=== PATIENT | male | born 1965 | race Caucasian/White ===

== ENCOUNTER 2016-09-13 06:57 | Day surgery (SDC) | payer BC, OTHER ==
--- NOTE | 2016-09-12 14:45 | HP ---
DATE OF CLINIC: 09/07/2016 ORION VILLALPANDO : 1965 PLANNED PROCEDURE: Left Knee Arthroscopic Partial Medial and Lateral Meniscectomies DATE OF SURGERY: September 13, 2016 SURGEON: Ulises Chicas M.D. HISTORY OF PRESENT ILLNESS Orion Villalpando is a 51 year old male. * Medication list reviewed with patient allergy list reviewed with patient. Patient is a being seen today regarding his left anterior knee pain for the past 2 months following a hike at [employer]. He denies any specific injury. He was hiking on inclines and declines and reports that inclines do produce knee pain. He also has pain following sedentary activities with symptom resolution after a few minutes of knee ROM. He denies any instability or weakness. He has tried ibuprofen, 200mg, 3 times a day without significant help. He has also tried icing of the knee and a knee sleeve and an CRISTINA wrap. He denies any knee injections. His symptoms are most pronounced in the anteromedial knee as well as radiating through behind the kneecap into the lateral mid femoral tibial joint-line. He has no complaints with kneeling. 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 After discussion and review of treatment options, both operative and non-operative, he has elected to proceed with surgery and presents today preoperatively. CURRENT MEDICATION * Ibuprofen 200 MG Tablet as needed 0 days, 0 refills PAST MEDICAL/SURGICAL HISTORY Reported: Medical: Renal history Stones. Surgical / Procedural: Hernia repair Double - 2006. SOCIAL HISTORY Behavioral: No tobacco use. Never smoked. Smoking status: Never smoker. Alcohol: Alcohol use. ALLERGIES * No Known Allergies No reaction to anesthetics. REVIEW OF SYSTEMS No recent constitutional symptoms to include fevers and chills. No cardiovascular symptoms to include chest pain or palpitations. No respiratory symptoms to include shortness of breath or recent infections. PHYSICAL FINDINGS * Vitals taken 09/07/2016 03:17 pm BP-Sitting R 118/84 mmHg Pulse Rate-Sitting 73 bpm Temp-Oral 97.6 F Height 67.5 in Weight 158 lbs Body Mass Index 24.4 kg/m2 Body Surface Area 1.84 m2 Pain Level 4 Ears, Nose, Throat: * ENT: normal. Lungs: * Clear to auscultation. Cardiovascular: Heart Rate and Rhythm: * Normal. Abdomen: * Normal. Neurological: Motor: * Dominant Hand = Right Hand. Patient is alert and oriented and in no acute distress. He ambulates in on his own without a knee brace or walking aid. Left knee exam: No bruising, swelling or deformity. No erythema, increased warmth or sign of infection. Patient has some mild patellar popping with a negative patellar grind test. He has a little bit of patellar mobility, but no pronounced subluxation or dislocation symptoms. His knee ROM is fully straight and is able to flex to 130 degrees. Valgus and varus stress tests shows good stability with good endpoint. Varus stressing produces some discomfort along the medial joint. Stephanie test is slightly positive producing some mild anteromedial jointline symptoms. Trevor test is negative, anterior drawer and posterior drawer tests are negative. Quadriceps and hamstring strength is 5/5. Ankle dorsiflexion and plantarflexion strength is 5/5. Hip strength is 5/5. IMAGING Xrays from today, 08/28/16, as well as 07/13/16 were reviewed and shows bilateral medial compartment joint space narrowing consistent with mild knee arthritis. His lateral view of his left knee shows mild superior patella bone spur consistent with early patellofemoral osteoarthritis. No sign of fracture or dislocation. His MRI from 08/08/16 was also reviewed and he has signal changes in the mid-lateral meniscus as well as the posteromedial meniscus consistent with medial and lateral meniscus tears. His ACL and PCL appear to be intact as well as his collaterals. No substantial bone bruising. Please refer to radiologic report for further details. ASSESSMENT Left knee pain. Internal derangement, left knee, consistent with probable medial posterior horn meniscus tear and possible lateral subtle meniscus tear. Possible anterior knee pain coming from patellofemoral symptoms. THERAPY * Patient not eligible for fall risk assessment. PLAN * Oth meniscus derangements, other medial meniscus, left knee Percocet 5-325 MG TABS, Take 1-2 tablets by mouth every 4 hours as needed for pain, 14 days, 0 refills * Knee Arthroscopy (Left) with PMM and PLM CARE TEAM Dimitry Carvajal MD [facility] SURGICAL CONSENT We have discussed surgical options including left knee arthroscopic PMM and PLM and non-operative management. The patient was counseled in detail regarding the diagnosis, treatment options available, prognosis of each treatment option and the potential risks and complications. The risks of surgery include, but are not limited to, anesthetic , neurovascular complications, pulmonary embolism, deep vein thrombosis, wound dehiscence, failure of any or all of the discussed procedures, infection of the joint or surrounding soft tissue, need for revision surgery, chronic pain, limitations in activities of daily living, inability to return to work, and loss of normal range of motion or functional use of the extremity. There is the possibility of failure over time that may require additional operative or non-operative treatment. The patient acknowledged that there are a number of perioperative risks not mentioned here and would still like to proceed. The patient is aware of and understands these risks, and wishes to proceed with the proposed surgical procedure and other procedures as indicated at the time of surgery. We will have the patient see their PCP for a preoperative medical risk assessment. The preoperative instructions were reviewed with the patient and all questions were answered. PB/sg
[~2016-09-13 06:57] MED LIST: CEFAZOLIN SODIUM 2 GRAM DUPLEX 50 ML IV PRN; IV START KIT ONE; LACTATED RINGERS 1,000 ML ONE
[2016-09-13] MEDS ORDERED: CEFAZOLIN SODIUM 2 GRAM PREMIX 100 ML IV ONE (07:05)
[2016-09-13] MEDS ORDERED: PROPOFOL 20 ML IV ONE (08:11)
[2016-09-13] MEDS ORDERED: ONDANSETRON 4 MG/2ML 2 ML VIAL ONE (08:11)
[2016-09-13] MEDS ORDERED: BUPIVACAINE 0.5% W/EPI SDV 30 ML VIAL ONE (08:12)
[2016-09-13] MEDS ORDERED: FENTANYL 100 MCG/2 ML VIAL ONE (08:12)
[2016-09-13] MEDS ORDERED: MIDAZOLAM HCL 1 MG/ML 2ML VIAL ONE (08:12)
[2016-09-13] MEDS ORDERED: KETAMINE HCL 50 MG/ML 1 ML DOSE ONE (08:36)
[2016-09-13] MEDS ORDERED: ONDANSETRON 4 MG/2ML 2 ML VIAL IV PRN ×2 (08:55→09:32)
[2016-09-13] MEDS ORDERED: MORPHINE SULFATE 4 MG/ML SYRINGE IV PRN (08:55)
[2016-09-13] MEDS ORDERED: FENTANYL 100 MCG/2 ML VIAL IV PRN (08:55)
[2016-09-13] MEDS ORDERED: PROMETHAZINE HCL 25 MG/ML VIAL IM PRN (08:55)
[2016-09-13] MEDS ORDERED: LACTATED RINGERS 1,000 ML IV SCH ×2 (09:00→09:32)
[2016-09-13] MEDS ORDERED: KETOROLAC TROMETHAMINE 30 MG/ML 1 ML VIAL ONE (09:03)
--- NOTE | 2016-09-13 09:18 | PCMBPN ---
Brief Post Op Note: Date of Procedure: 09/13/16 Start Time: 0900 Preoperative Diagnosis: 1. left knee medial meniscus tear Postoperative Diagnosis: 1. Same Procedure: left knee arthroscopy with partial medial meniscectomy Surgeon: Ulises Chicas MD Assist: none Anesthesia: Alex Ansari (LMA) Findings: as above Condition: stable to PACU Complications: none IV Fluids: 700 mLs of LR Urine Output: 0 mLs Estimated Blood Loss: 5 mLs Tourniquet Time: 10 min at 250 mm Hg Specimens: none Implants: none Drains: none Ulises Chicas MD
[2016-09-13] MEDS ORDERED: DIPHENHYDRAMINE HCL 50 MG/1 ML VIAL IV PRN (09:32)
[2016-09-13] MEDS ORDERED: HYDROMORPHONE HCL 1 MG/ML SYRINGE IV PRN (09:32)
[2016-09-13] MEDS ORDERED: ACETAMINOPHEN 325 MG TABLET PO PRN (09:32)
[2016-09-13] MEDS ORDERED: OXYCODONE/ACETAMINOPHEN 5/325 MG TABLET PO PRN (09:32)
[2016-09-13] MEDS ORDERED: OXYCODONE/ACETAMINOPHEN 5/325 MG TABLET ONE (09:54)
--- NOTE | 2016-09-14 08:46 | OP ---
GAIL HERNANDEZ : 1965 [id number] DATE OF PROCEDURE: September 13, 2016 PREOPERATIVE DIAGNOSIS: Left knee medial meniscus tear. POSTOPERATIVE DIAGNOSES: Left knee medial meniscus tear. PROCEDURE PERFORMED: LEFT KNEE ARTHROSCOPY WITH PARTIAL MEDIAL MENISCECTOMY SURGEON: Ulises Chicas M.D. SALON DESIGNER: Timothy Kapoor P.A.-C. ANESTHESIA: LMA per Alex Ansari SPECIMENS: No material was sent to the laboratory. ESTIMATED BLOOD LOSS: 5 mL FLUIDS REPLACED: 700 mL of crystalloid. TOURNIQUET TIME: 10 minutes at 250 mmHg. URINE OUTPUT: None. IMPLANTS: None. DRAINS: No drains. INDICATIONS: This is a 51-year-old male who complains of pain and mechanical symptoms in the right knee that have been increasing over time and have not responded to a course of nonoperative measures. Patient has an exam and imaging studies which are consistent with the above. Given failure to improve with nonoperative measures patient elected to proceed with left knee arthroscopy with PMM. The risks, benefits and alternatives were discussed at length with that patient and they elected to proceed with surgery. Informed consent was obtained and documented in the chart and the patient was placed on the schedule the first available convenience. DESCRIPTION OF PROCEDURE: The patient was identified in the preoperative holding area where they were marked with an indelible marker by the operating surgeon. Patient was taken to the operating room where they were placed in the supine position the operating room table. A general anesthesia was induced, perioperative antibiotics were administered and a well padded pre-calibrated nonsterile tourniquet was placed on the left upper thigh. Patient was prepped and draped in the usual sterile fashion for surgery. An operative time out was performed and confirmed by all members of the operative team confirming the patient identity, procedure to be performed and the laterally for that procedure. All necessary personnel, equipment and implants were in place and there were no safety concerns. The leg was elevated and exsanguinated using the Esmarch bandage and the tourniquet was inflated to 250 mmHg. A standard lateral portal was created and the 30 degree viewing arthroscope was inserted into the knee. Optics were directed anteromedially and a medial portal was localized and created in a standard fashion. A probe was inserted through this medial portal and used in completion of the diagnostic arthroscopy with the following findings: Complex tear of the posterior horn of the medial meniscus, intact lateral meniscus, intact chondral surfaces of the medial, lateral and patellofemoral joints. No significant hypertrophy of the anterior fat pad, intact ACL, PCL and collaterals. No loose bodies. After completion of diagnostic arthroscopy the probe was exchanged for an arthroscopic biter and this was used to resect back the medial meniscus to a stable rim. This was then exchanged for arthroscopic resector shaver which was used to complete the partial medial meniscectomy. At this point we felt that we had addressed the patient's intra-articular pathology and so the camera and instruments were removed from the knee. The portal sites were closed with #4-0 Nylons; 20 mL of 0.5% Marcaine was injected into the knee for perioperative analgesia. A sterile dressing of Xeroform, fluffs, ABDs, web roll and then an CRISTINA bandage from ankle to the thigh was applied. The tourniquet was deflated, the drapes were removed. The patient was awakened from anesthesia and extubated in the operating room without difficulty. Patient was transferred to a stretcher and taken postoperatively to the post anesthesia care unit in stable condition. There were no observed intraoperative complications during this procedure. LAURA/zenon CC: [facility]
[2016-09-17] MEDS ORDERED: OXYCODONE/ACETAMINOPHEN 5/325 MG TABLET PO PRN (09:31)
== END 2016-09-13 10:40 | disposition home or self-care (01) ==
LOC: SDC 06:57
PROVIDERS: ATTEND Orthopaedic Surgery
PROC: 0SBD4ZZ Excision of Left Knee Joint, Percutaneous Endoscopic Approach (ICD-10-PCS; principal; 2016-09-13)
DX: M23.304 Other meniscus derangements, unspecified medial meniscus, left knee (principal)
CPT/HCPCS: 29881; J3010; A9270; J1885; J2250; J2405; J7120; J0690